=== PATIENT | female | born 1950 | race African-American/Black ===

== ENCOUNTER 2022-09-16 14:10 | Emergency (ER) | payer OTHER ==
[~2022-09-16] VITALS: Ht 157.5 cm; Wt 68.0 kg
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
[2022-09-16] MEDS ORDERED: DORZ10DR11 RIGHTEYE (15:47)
[2022-09-16] MEDS ORDERED: ASPI-1169 PO (15:47)
[2022-09-16] MEDS ORDERED: BRIM5DRO5 EACHEYE (15:47)
[2022-09-16] MEDS ORDERED: ATOR10TA PO (15:47)
[2022-09-16] MEDS ORDERED: METF-881 PO (15:48)
[2022-09-16] MEDS ORDERED: NPH,100V SQ ×2 (15:48)
[2022-09-16] MEDS ORDERED: LOSA25TA27 PO (15:48)
[2022-09-16] MEDS ORDERED: GABA-532 PO (15:48)
[2022-09-16] MEDS ORDERED: MAGN400O6 PO (15:48)
[2022-09-16] MEDS ORDERED: ACET-868 PO (15:48)
[2022-09-16] MEDS ORDERED: MULT-479 PO (15:48)
[2022-09-16] MEDS ORDERED: ACET-2605 PO (15:48)
[2022-09-16] MEDS ORDERED: CHOL100043 PO (15:48)
[2022-09-16] MEDS ORDERED: NA P133E RC (15:48)
[2022-09-16] MEDS ORDERED: GLIP10TA21 PO (15:48)
--- NOTE | 2022-09-16 16:06 | NUR ---
[phone] [facility] "[facility]"
--- NOTE | 2022-09-16 16:51 | NUR ---
[facility] WILL BE HERE AT [id number]
--- NOTE | 2022-09-16 18:16 | NUR ---
REPORT GIVEN TO [facility], PT TRANSFERRED BACK TO [facility] IN STABLE CONDITION. [facility] NOTIFIED PT WILL BE COMING BACK TO THEIR FACILITY.
[2022-09-16 18:18] VITALS: BP 134/69
== END 2022-09-16 18:19 | disposition home or self-care (01) ==
LOC: ER 14:25
DX: S00.12XA Contusion of left eyelid and periocular area, initial encounter (principal); I10 Essential (primary) hypertension; E11.9 Type 2 diabetes mellitus without complications; F32.A Depression, unspecified; Z79.899 Other long term (current) drug therapy; Z79.84 Long term (current) use of oral hypoglycemic drugs; Z79.82 Long term (current) use of aspirin; Z88.8 Allergy status to other drugs, medicaments and biological substances; Y09 Assault by unspecified means; Y93.89 Activity, other specified; Y92.89 Other specified places as the place of occurrence of the external cause; Y99.8 Other external cause status
CPT/HCPCS: 70450-TC; 70486-TC; 72125-TC